=== PATIENT | male | born 1985 | race Caucasian/White ===

== ENCOUNTER 2017-09-05 17:24 | Emergency (ER) | payer MEDICAID ==
[~2017-09-05] VITALS: Ht 177.8 cm; Wt 94.0 kg
[2017-09-05 18:44] VITALS: BP 118/87
== END 2017-09-05 18:46 | disposition home or self-care (01) ==
LOC: ER 18:35
DX: Z48.00 Encounter for change or removal of nonsurgical wound dressing (principal)
CPT/HCPCS: 99283